=== PATIENT | female | born 1950 | race Caucasian/White ===

== ENCOUNTER 2019-01-15 06:01 | Inpatient (IN) | payer MEDICARE, OTHER ==
[2019-01-15] MEDS ORDERED: LACTATED RINGERS 1,000 ML IV.SOLN IV ONE ×2 (08:48)
[2019-01-15] MEDS ORDERED: GELATIN SPONGE,ABSORB/PORCINE (SIZE 100) 1 EACH SPONGE TP ONE (08:48)
[2019-01-15] MEDS ORDERED: SUGAMMADEX SODIUM 200 MG/2 ML VIAL IV ONE (08:48)
[2019-01-15] MEDS ORDERED: DEXAMETHASONE SODIUM PHOSPHATE 10 MG/ML VIAL ONE (08:48)
[2019-01-15] MEDS ORDERED: FUROSEMIDE 20 MG/2 ML VIAL ONE ×4 (08:48→14:00)
[2019-01-15] MEDS ORDERED: LIDOCAINE HCL 2% PF 100MG/5ML VIAL IJ ONE (08:48)
[2019-01-15] MEDS ORDERED: THROMBIN (BOVINE) 20,000 UNIT VIAL TP ONE (08:48)
[2019-01-15] MEDS ORDERED: LABETALOL HCL 20 MG/4 ML SYRINGE IV ONE ×2 (08:48→11:08)
[2019-01-15] MEDS ORDERED: NORMAL SALINE 1,000 ML IV.SOLN IV ONE (08:48)
[2019-01-15] MEDS ORDERED: PROPOFOL 200 MG/20 ML VIAL IV ONE (08:48)
[2019-01-15] MEDS ORDERED: fentaNYL CITRATE/PF 100 MCG/2 ML INJ. ONE ×3 (08:48→10:47)
[2019-01-15] MEDS ORDERED: ePHEDrine SULFATE 50 MG/1 ML IVP ONE (08:48)
[2019-01-15] MEDS ORDERED: MIDAZOLAM HCL 2 MG/2 ML VIAL ONE (08:48)
[2019-01-15] MEDS ORDERED: PHENYLEPHRINE HCL 10 MG/1 ML ONE (08:48)
[2019-01-15] MEDS ORDERED: SEVOFLURANE 250 ML LIQUID IH ONE (08:48)
[2019-01-15] MEDS ORDERED: ceFAZolin SODIUM 1 GM VIAL ONE (08:48)
[2019-01-15] MEDS ORDERED: ROCURONIUM BROMIDE 10 MG/ML 5ML VIAL ONE (08:48)
[2019-01-15] MEDS ORDERED: PROMETHAZINE HCL 25 MG/ML VIAL ONE ×2 (08:48→10:56)
[2019-01-15] MEDS ORDERED: BACITRACIN 50,000 UNIT VIAL IR ONE (08:48)
[2019-01-15] MEDS ORDERED: LEVALBUTEROL NEB 1.25 MG/3 ML VIAL.NEB NEB ONE (10:48)
--- NOTE | 2019-01-15 11:44 | Diagnostic Imaging Report ---
MARIN MOTLEY [facility] [id number] [facility] [address] [place], [place]. [address] Report Submission Date: January 15, 2019 11:36:29 AM CDT Patient Study Name: GILLIAN WILLIS Date: January 15, 2019 11:17:00 AM CDT Modality Type: DX Gender: F Description: CHEST 1VIEW : 52 Institution: [facility] Physician: MARIN MOTLEY EXAMINATION: CHEST 1VIEW HISTORY: POST OP LOW SATURATION (Hx) COMPARISON: None FINDINGS: A left subclavian approach cardiac device has an intact lead. Cervical spinal fusion hardware is present. Bilateral total shoulder arthroplasties are identified. There are diffuse bilateral fluffy airspace opacities, most pronounced in the perihilar regions. There is no pleural effusion or pneumothorax. The cardiomediastinal silhouette is normal. IMPRESSION: Diffuse bilateral airspace opacities, likely representing pulmonary edema. Electronically signed on January 15, 2019 11:36:29 AM CDT by: Joshua AMARO
[2019-01-15] MEDS ORDERED: diphenhydrAMINE HCL 25 MG TABLET PO PRN (15:38)
[2019-01-15] MEDS ORDERED: PANTOPRAZOLE SODIUM 40 MG TABLET.DR PO ONE (15:40)
[2019-01-15] MEDS ORDERED: ONDANSETRON HCL/PF 4 MG/ 2ML VIAL IVP PRN (15:44)
[2019-01-15] MEDS ORDERED: KETOROLAC TROMETHAMINE 15 MG/ML VIAL IV PRN (15:44)
[2019-01-15] MEDS ORDERED: oxyCODONE/ACETAMINOPHEN 5/325 TABLET PO PRN (15:44)
[2019-01-15] MEDS ORDERED: fentaNYL CITRATE/PF 100 MCG/2 ML INJ. IVP PRN (15:44)
[2019-01-15 15:48] VITALS: BMI 32.5
[2019-01-15] MEDS: GABAPENTIN 100 MG CAPSULE PO SCH (17:24)
--- NOTE | 2019-01-15 17:37 | History and Physical Report ---
History of Present Illnes - History of Present Illness Reason for Visit: s/p cervical fusion History of Present Illness: 69yo white female who has had several year history of neck pain. Has had some steroid injection, and has tried PT without improvement. Patient has failed conservative measure. It was felt that she would benefit from from anterior cervical disectomy and fusion of C7-T1. Patient denies that she has had any previous cervical surgery. Postoperatively patient developed some increasing SOB and dyspnea. Patient was placed on supplemental oxygen. She developed some pulmonary crackles and a chest x-ray was done that was consistent with CHF. Patient was given iv lasix with go od diuresis. Patient had improvement with her breathing at the time of admission to floor SAO2 was 94% on 4 liters. patient is not on oxygen therapy at home. 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 (2006 dysphagia and dysphsia) Gastrointestinal: Other (hx of C diff) Musculoskeletal: Chronic low back pain - Past Surgical History Past Surgical History: Appendectomy, Hysterectomy (1978), Total Knee Replacement (Right 2015), Other (Defibrilator/pacemaker placed 2011, back surgery for disk disease, carpal tunnel relase bilat, C ect 1970&1972, Rotaor cuff repair- Right 2012, Left 2013, reverse shoudler replacement 2013) - Past Family History Father Family History: CAD Brother 1 Family History: CAD Sister 1 Family History: Other (asthma) - Past Social History Smoke: No Occupation: disabled Alcohol: None Drugs: None Lives: With Family Domestic Violence: Negative - Health Maintenance Health Maintenance: Cholesterol, Influenza Vaccine Pneumonia Vaccine: Yes Resuscitation Status: Resusciation Status Resuscitation Status Full Code - Unable to Obtain History Unable to Obtain: No Review of Systems - Review of Systems Constitutional: negative: Fever, Chills, Sweats Eyes: other (glasses). negative: pain ENT: negative: Ear Pain, Ear Discharge, Nose Pain, Nose Discharge, Nose Congestion, Mouth Pain, Mouth Swelling, Throat Pain Respiratory: Shortness of Breath. negative: Cough, Dry, Hemoptysis, SOB with Excertion, Pleuritic Pain, Sputum, Wheezing Cardiovascular: negative: Chest Pain, Palpitations, Orthopnea, Edema, Light Headedness Gastrointestinal: negative: Nausea, Vomiting, Abdominal Pain, Diarrhea, Constipation, Melena, Hematochezia Genitourinary: negative: Dysuria, Frequency, Incontinence, Hematuria, Retention Musculoskeletal: Neck Pain. negative: Shoulder Pain, Arm Pain Skin: negative: Rash Neurological: negative: Weakness, Numbness - Medications/Allergies Allergies/Adverse Reactions: Allergies Allergy/AdvReac Type Severity Reaction Status Date / Time aspirin Allergy Verified 01/15/19 09:24 bee venom protein (honey bee) Allergy Verified 01/15/19 09:24 hydromorphone Allergy Verified 01/15/19 09:24 morphine Allergy Verified 01/15/19 09:24 Sulfa (Sulfonamide Allergy Verified 01/15/19 09:24 Antibiotics) Home Medications: Home Medications Carvedilol [Coreg] 6.25 mg PO BID 01/15/19 Furosemide 20 mg PO DAILY 01/15/19 Gabapentin 100 mg PO QID 01/15/19 Lisinopril 10 mg PO DAILY 01/15/19 Oxycodone HCl/Acetaminophen [Oxycodone-Acetaminophen 10-325] 1 tab PO Q6 PRN 01/15/19 Pravastatin Sodium 40 mg PO BID 01/15/19 Ranitidine HCl 300 mg PO DAILY PRN 01/15/19 diphenhydrAMINE HCL [Benadryl] 25 mg PO PRN PRN 01/15/19 Current Inpatient Medications: Current Inpatient Medications Carvedilol (Coreg) 6.25 mg PO BID [facility] Diphenhydramine HCl (Benadryl) 25 mg PO Q6H PRN PRN Reason: sleep/itching Docusate Sodium (Colace) 100 mg PO BID [facility] Stop: 01/17/19 09:01 Fentanyl Citrate (Sublimaze) 100 mcg IVP Q2H PRN PRN Reason: For Severe Pain 8-10 Stop: 01/16/19 15:43 Furosemide (Lasix) 20 mg IVP 714 [facility] Gabapentin (Neurontin) 100 mg PO QID [facility] Last Admin: 01/15/19 17:24 Dose: 100 mg Heparin Sodium (Porcine) (Heparin) 5,000 unit SQ Q12 [facility] Ketorolac Tromethamine (Toradol) 15 mg IV Q6H PRN PRN Reason: Mild Pain 1-4 Stop: 01/19/19 15:43 Last Admin: 01/15/19 16:23 Dose: 15 mg Lisinopril (Prinivil) 10 mg PO DAILY [facility] Ondansetron HCl (Zofran) 4 mg IVP Q6H PRN PRN Reason: Nausea / Vomiting Stop: 01/19/19 15:43 Oxycodone/Acetaminophen (Percocet 5-325) 2 each PO Q4 PRN PRN Reason: Moderate pain 5-7 Exam - Exam Vital Signs: Vital Signs (72 hours) 01/15/19 01/15/19 01/15/19 15:15 15:20 15:45 Temperature 96.5 F L 96.4 F L 96.7 F L Pulse Rate [ 115 H 112 H 112 H Left] Respiratory 17 22 19 Rate Blood Pressure 133/101 133/101 131/103 [Left Arm] O2 Sat by Pulse 93 90 L 95 Oximetry 01/15/19 01/15/19 01/15/19 16:15 16:51 17:15 Temperature 96.9 F L 96.8 F L 96.9 F L Pulse Rate [ 117 H 113 H 116 H Left] Respiratory 20 24 18 Rate Blood Pressure 117/92 133/91 123/95 [Left Arm] O2 Sat by Pulse 100 98 96 Oximetry General: Alert, Oriented to Person, Oriented to Place, Oriented to Time, Cooperative, Moderate distress HEENT: Atraumatic, PERRLA, EOMI, Mouth Mucous membr. moist/[employer], Nose Mucous membr. moist/[employer] Neck: Other (dressing to the anterior neck is clean and dry. No neck swelling noted.) Carotids: WNL Lungs: Clear to auscultation, Normal air movement, Speaks full Sentences, Rales (few faint basilar rales) Cardiovascular: Regular rate, Normal S1, Normal S2, No murmurs Murmur: No: Rub Abdomen: Normal bowel sounds, Soft, No tenderness, No hepatospenomegaly, No masses Integumentary: Normal, [employer], Warm, Dry Extremities: No clubbing, No cyanosis, No edema, Normal pulses, No tenderness/swelling Neurological: Normal gait, Normal speech, Strength Equal Bilat, Normal tone, Sensation intact, Cranial nerves 3-12 NL, Reflexes 2+ Psych/Mental Status: Mental status NL, Mood NL, Appropriate Affect, Intact Judgment - Laboratory Results Laboratory Results: Laboratory Results 01/15/19 11:25 Hgb 13.5 Hct 39.7 Assessment/Plan - Assessment/Plan (1) History of orthopedic surgery Status: Acute (2) CAD (coronary artery disease) Status: Chronic Qualifiers: Coronary Disease-Associated Artery/Lesion type: [place] artery [place] vs. transplanted heart: [place] heart Associated angina: without angina Qualified Code(s): I25.10 - Atherosclerotic heart disease of [place] coronary artery without angina pectoris Assessment: continue home meds (3) Obstructive sleep apnea Status: Chronic Assessment: Patient refuses CPAP. Does not wear oxygen at home (4) HTN (hypertension) Status: Chronic Assessment: continue home meds (5) Status post cerebrovascular accident Status: Chronic Assessment: stable, no TIA or CVA symptoms at this time VTE Assessment - RISK FACTOR SCORE VTE RISK FACTOR SCORES: AGE OVER 60 YEARS, ANTICIPATED BED CONFINEMENT OR IMMOBILIZATION > 24 HOURS - RISK VTE MODERATE RISK: SCORE OF 2 (RISK PROXIMAL DVT 2-4%) PROPHYAXIS NEEDED
[2019-01-15] MEDS ORDERED: DOCUSATE SODIUM 100 MG CAPSULE PO SCH (21:00)
[2019-01-15] MEDS ORDERED: CARVEDILOL 6.25 MG TABLET PO SCH (21:00)
[2019-01-15] MEDS ORDERED: HEPARIN SODIUM 5000 UNIT/1 ML SQ SCH (21:00)
[2019-01-15] MEDS ORDERED: 0.9 % SODIUM CHLORIDE 1,000 ML IV ONE (21:07)
[2019-01-15] MEDS ORDERED: 0.9 % SODIUM CHLORIDE 250 ML IV SCH ×2 (21:45)
[2019-01-15 22:10] LABS: BASOPHILS % 0.4 % (0.0-1.5)
[2019-01-15] MEDS ORDERED: ASPIRIN 81 MG CHEW TAB ONE (22:51)
--- NOTE | 2019-01-15 23:11 | Inpatient Progress Note ---
Subjective - Required Recertification Statement I anticipate X number of days because-include discharge plan: 1 day - Review of Systems Events since last encounter: Patient seemed to be doing well postoperatively. Had been weaned down from 4 liters oxygen to 1 liter per nasal canula. At about 2030 this evening she started to drop her blood pressure to 60 systolic. Patient was given bolus of 500cc NS with improvement of sytolic BP to mid 80s. Then is dropped again to the 60s. Patient was given another 250cc bolus with return of BP to the 90s. patient denies that she has had any chest pain. EKG done did show some slight ST elevation , 1mm in V4 V5. Troponin was done and was found to be elevated at 1.3. Residential Installer at the [facility] contacted and agreed to accept patient. Objective - Exam Vitals and I&O: Vital Signs Temp 97.3 F L 01/15/19 20:38 Pulse 110 H 01/15/19 20:38 Resp 15 01/15/19 20:38 BP 80/49 01/15/19 20:38 Pulse Ox 100 01/15/19 20:38 Intake & Output 01/14/19 01/15/19 01/15/19 23:59 11:59 23:59 Intake Total 100 Output Total 450 Balance -350 Weight 73.028 kg Intake: IV 0 Left Hand 0 Oral 100 Output: Urine 450 Other: Voiding Method Indwelling Catheter General: Alert, Oriented to Person, Oriented to Place, Oriented to Time, Cooperative Neck: No JVD, No thyromegaly, Other (no swelling noted) Lungs: Clear to auscultation, Normal air movement, Speaks full Sentences Cardiovascular: Regular rate, Normal S1, Normal S2, No murmurs Abdomen: Normal bowel sounds, Soft, No tenderness, No hepatospenomegaly, No masses Extremities: No clubbing, No cyanosis, No edema, Normal pulses, No tenderness/swelling - Results Results: Laboratory Results WBC 11.70 K/ul (4.00-12.00) 01/15/19 21:45 RBC 4.13 M/ul (3.90-5.20) 01/15/19 21:45 Hgb 12.0 g/dL (11.5-16.0) 01/15/19 21:45 Hct 35.5 % (34.5-46.5) 01/15/19 21:45 MCV 86.0 fl (80.0-100.0) 01/15/19 21:45 MCH 29.1 pg (28.0-34.0) 01/15/19 21:45 MCHC 33.9 g/dL (30.0-36.0) 01/15/19 21:45 RDW 13.4 % (11.3-14.3) 01/15/19 21:45 Plt Count 241 K/mm3 (130-400) 01/15/19 21:45 Neut % (Auto) 85.2 % (39.0-79.0) H 01/15/19 21:45 Lymph % (Auto) 8.2 % (16.0-50.0) L 01/15/19 21:45 [place] % (Auto) 5.4 % (0.0-11.0) 01/15/19 21:45 Eos % (Auto) 0.8 % (0.0-6.8) 01/15/19 21:45 Baso % (Auto) 0.4 % (0.0-1.5) 01/15/19 21:45 Neut # (Auto) 10.0 # k/uL (1.4-7.7) H 01/15/19 21:45 Lymph # (Auto) 1.0 # k/uL (0.6-4.0) 01/15/19 21:45 [place] # (Auto) 0.6 # k/uL (0.0-0.9) 01/15/19 21:45 Eos # (Auto) 0.1 # k/uL (0.0-0.6) 01/15/19 21:45 Baso # (Auto) 0.1 # k/uL (0.0-0.5) 01/15/19 21:45 Sodium 139 mmol/L (137-145) 01/15/19 21:45 Potassium 5.7 mmol/L (3.5-5.1) H 01/15/19 21:45 Chloride 104 mmol/L (98-107) 01/15/19 21:45 Carbon Dioxide 25 mmol/L (22-30) 01/15/19 21:45 BUN 32 mg/dL (7-17) H 01/15/19 21:45 Creatinine 1.76 mg/dL (0.52-1.04) H 01/15/19 21:45 Estimated Creat Clear 41 01/15/19 21:45 Est GFR ( Amer) 37 (60-) L 01/15/19 21:45 Est GFR (Non-Af Amer) 31 (60-) L 01/15/19 21:45 Glucose 145 mg/dL (74-106) H 01/15/19 21:45 Calcium 8.9 mg/dL (8.4-10.2) 01/15/19 21:45 Total Bilirubin 0.3 mg/dL (0.2-1.3) 01/15/19 21:45 AST 50 U/L (15-46) H 01/15/19 21:45 ALT 34 U/L (0-35) 01/15/19 21:45 Alkaline Phosphatase 69 U/L (38-126) 01/15/19 21:45 Troponin I 1.320 ng/mL (0.012-0.034) H* 01/15/19 21:45 Total Protein 6.3 g/dL (6.3-8.2) 01/15/19 21:45 Albumin 3.5 g/dL (3.5-5.0) 01/15/19 21:45 Assessment/Plan - Assessment/Plan (1) History of orthopedic surgery Status: Acute (2) CAD (coronary artery disease) Status: Chronic Qualifiers: Coronary Disease-Associated Artery/Lesion type: [place] artery [place] vs. transplanted heart: [place] heart Associated angina: without angina Qualified Code(s): I25.10 - Atherosclerotic heart disease of [place] coronary artery without angina pectoris Assessment: Patient has been having some hypertension with elevated troponin levels. I will contact director security risk management at [facility] further direction. I feel that would be appropriate for her to be transferred to the [place] [facility] for further evaluation. (3) Obstructive sleep apnea Status: Chronic (4) HTN (hypertension) Status: Chronic (5) Status post cerebrovascular accident Status: Chronic
--- NOTE | 2019-01-15 23:13 | Discharge Summary ---
Discharge Summary - Discharge [place] Admission Date: 01/15/19 (Acute Care) Discharge Date: 01/15/19 ([facility]) History of Present Illness: 69yo white female who has had several year history of neck pain. Has had some steroid injection, and has tried PT without improvement. Patient has failed conservative measure. It was felt that she would benefit from from anterior cervical disectomy and fusion of C7-T1. Patient denies that she has had any previous cervical surgery. Postoperatively patient developed some increasing SOB and dyspnea. Patient was placed on supplemental oxygen. She developed some pulmonary crackles and a chest x-ray was done that was consistent with CHF. Patient was given iv lasix with good diuresis. Patient had improvement with her breathing at the time of admission to floor SAO2 was 94% on 4 liters. patient is not on oxygen therapy at home. Condition at Discharge: Guarded Home Medications: Ambulatory Orders Medication Instructions Recorded Carvedilol [Coreg] 6.25 mg PO BID 01/15/19 Furosemide 20 mg PO DAILY 01/15/19 Gabapentin 100 mg PO QID 01/15/19 Lisinopril 10 mg PO DAILY 01/15/19 Oxycodone HCl/Acetaminophen 1 tab PO Q6 PRN 01/15/19 [Oxycodone-Acetaminophen 10-325] Pravastatin Sodium 40 mg PO BID 01/15/19 Ranitidine HCl 300 mg PO DAILY PRN 01/15/19 diphenhydrAMINE HCL [Benadryl] 25 mg PO PRN PRN 01/15/19 Consultations this Visit: None Procedures this Visit: Other (Anterior C7-T1 fusion) Allergies/Adverse Reactions: Allergies Allergy/AdvReac Type Severity Reaction Status Date / Time aspirin Allergy Verified 01/15/19 09:24 bee venom protein (honey bee) Allergy Verified 01/15/19 09:24 hydromorphone Allergy Verified 01/15/19 09:24 morphine Allergy Verified 01/15/19 09:24 Sulfa (Sulfonamide Allergy Verified 01/15/19 09:24 Antibiotics) Patient Problems: Current Active Problems Problem Status Onset History of orthopedic surgery Acute CAD (coronary artery disease) Chronic HTN (hypertension) Chronic Obstructive sleep apnea Chronic Status post cerebrovascular accident Chronic Discharge Summary: Patient did develop some CHF postoperatively. She was given IV lasix with good diuresis. Patient seemed to be doing well postoperatively. Had been weaned down from 4 liters oxygen to 1 liter per nasal canula. At about 2030 this evening she started to drop her blood pressure to 60 systolic. Patient was given bolus of 500cc NS with improvement of sytolic BP to mid 80s. Then is dropped again to the 60s. Patient was given another 250cc bolus with return of BP to the 90s. patient denies that she has had any chest pain. EKG done did show some slight ST elevation , 1mm in V4 V5. Troponin was done and was found to be elevated at 1.3. Patient was given 364mg of aspirin given 5000 units heparin. it was decided to wait on any further anticoagulation until she is seen at the [facility]. [facility] contacted and agreed to accept patient. - Final Diagnosis (1) History of orthopedic surgery Problems: s/p anterior cervical fusion. (2) CAD (coronary artery disease) Problems: Elevated troponin, I suspect that she has had an acute AL. (3) Obstructive sleep apnea Problems: Patient refused to use CPAP (4) HTN (hypertension) Problems: stable (5) Status post cerebrovascular accident Problems: stable
[2019-01-16 00:17] VITALS: BP 76/43
[2019-01-16] MEDS: GABAPENTIN 100 MG CAPSULE PO SCH (00:33)
[2019-01-16] MEDS ORDERED: FUROSEMIDE 20 MG/2 ML VIAL IVP SCH (07:00)
[2019-01-16] MEDS ORDERED: LISINOPRIL 10 MG TABLET PO SCH (09:00)
--- NOTE | 2019-01-18 06:55 | Operative Note ---
PREOPERATIVE DIAGNOSIS: 1. Degenerative disc disease with spondylolisthesis, C7-T1. 2. Severe facet arthritis, C7-T1. POSTOPERATIVE DIAGNOSIS: 1. Degenerative disc disease with spondylolisthesis, C7-T1. 2. Severe facet arthritis, C7-T1. PROCEDURES PERFORMED: 1. Radical anterior cervical discectomy, C7-T1. 2. Partial vertebrectomy of the posterior inferior aspect of the C7 vertebral body for decompression of central and bilateral foraminal stenosis. 3. Partial vertebrectomy of the posterior superior aspect of the T1 vertebral body for decompression of central and bilateral foraminal stenosis. 4. Insertion of prosthetic interbody fusion cage, C7-T1. 5. Anterior cervical fusion, C7-T1 using osteoconductive bone graft material. 6. Placement of anterior plate and screws, C7-T1. SURGEON: Jamel Colon Jr., M.D. INSTRUCTOR PILOT: TOPHER Rodriguez BC ANESTHESIA: General. COMPLICATIONS: None. CONDITION FOLLOWING THE PROCEDURE: Good. OPERATIVE FINDINGS: This patient had sudden, severe neck pain and documented by CT scan, myelogram and x-rays to have spondylolisthesis grade 1 at C7-T1 precipitated by severe arthritis which was also painful, attributable to the facet joints at C7-T1. This being the case, and having failed prolonged conservative management, the patient was counseled regarding options and has elected to proceed with anterior cervical discectomy and fusion. Because of the severe facet arthritis, arthroplasty could not be considered. Anterior plate and screws of the appropriate size along with a 6-mm interbody cage was placed and the space anterior to the cage was filled with osteoconductive bone graft material as well as the cage itself. DESCRIPTION OF PROCEDURE: The patient was taken to the operating room and anesthesia induced. In the supine position, the neck was thoroughly scrubbed, sterilely prepped and draped. A radiographic marker was made indicating the extended center line of the affected disc. In this location, and just to the left of midline, a transverse incision was made parallel to the skin lines, being 1-1/2 cm in length. Blunt dissection with a Metzenbaum scissor was carried out down the left side of the trachea and digital dissection was also performed in order to assure that the carotid triangle remained to the left side of the plane of dissection and the esophagus and trachea to the right side of the plane of dissection. Digital dissection continued down until the longus colli muscles were palpated on the left lateral side of the anterior spinal column. An [place] retractor was then inserted, retracting the trachea and esophagus to the right side and the prevertebral fascia was opened with blunt dissection using Kittner sponges to reveal an anterior annulus. A marker needle was placed and x-rays were taken to confirm the C7-T1 level for surgical care. Electrocautery was then used to elevate the longus colli muscles from the edge of the vertebral body and Hand Spring Repairer Helper self-retaining tined retractors were then placed on the left and right side at the disc level and beneath the longus colli muscles which had been elevated with electrocautery. This being accomplished, the self-retaining retractor was inserted and widened sufficiently. A #15 blade scalpel was then used to divide the annulus completely. Pituitary rongeur then removed the annulus and continued with a radical discectomy. York pins were then carefully placed into the central portion of the vertebral body above and below the disc space and the York retractor placed to provide distraction of the intervertebral disc space. Curettage of the endplates was then carried out. A 2-mm Kerrison rongeur was then used to remove the anterior osteophytes over the superior vertebral body. A smaller curette was then used to penetrate the annulus posteriorly and expose the dura sufficiently to allow entrance of a 1-mm Kerrison rongeur. A combination of 1-mm and 2-mm Kerrison rongeurs were then used to completely remove the posterior longitudinal ligament and thus expose the dura posteriorly. Resection of the osteophytes emanating posteriorly continued until there was complete relief of the central and bilateral foraminal compression. A sizer was then used until the correct height for a PEEK implant was chosen. The appropriate PEEK interbody implant was then chosen and packed with a combination of autologous bone graft and osteoconductive bone graft material (nanOss). The PEEK implant was then driven to the desired depth as determined radiographically. A titanium plate of the appropriate size was then placed anteriorly. This was performed after removal of the York pins which had been previously placed for distraction of the intervertebral disc space. The York pin holes in the vertebral body anteriorly were filled with bone wax. With the York pins removed, the appropriately-sized plate was chosen and placed anteriorly. Sequentially, the four holes were drilled and accepted fixation screws which were tightened down to secure the plate to the anterior vertebral bodies. Between the fenestration and the plate, the remainder of the anterior space anterior to the PEEK cage was completely packed with osteoconductive bone graft material. The retractor blades were then removed and the wound was inspected for hemostasis. Subcutaneous tissue was closed with 3-0 Vicryl. A 4-0 Vicryl running subcuticular suture approximated the dermis. The epithelium was then approximated using Dermabond. A Band-Aid was applied and the patient was taken to the recovery room where it was assured that motor and sensory examination was normal. JAMEL COLON JR., M.D. SHERLYN/rojelio (Please copy [facility] provider when applicable) Job #[id number] SONDAR
== END 2019-01-15 23:45 | disposition short-term general hospital (02) | DRG 471 ==
LOC: OPSURG 06:01 → SOUTH 14:45
PROVIDERS: ADMIT Family Medicine; ATTEND Family Medicine
PROC: XRG New Technology, Joints, Fusion (ICD-10-PCS; principal; 2019-01-15)
DX: M43.13 Spondylolisthesis, cervicothoracic region (principal); I21.9 Acute myocardial infarction, unspecified; G89.29 Other chronic pain; E78.00 Pure hypercholesterolemia, unspecified; I11.0 Hypertensive heart disease with heart failure; I50.9 Heart failure, unspecified; I25.10 Atherosclerotic heart disease of native coronary artery without angina pectoris; I25.2 Old myocardial infarction; M54.5 Low back pain; G47.33 Obstructive sleep apnea (adult) (pediatric); R03.1 Nonspecific low blood-pressure reading; M25.562 Pain in left knee; M25.561 Pain in right knee; M46.83 Other specified inflammatory spondylopathies, cervicothoracic region; Z86.73 Personal history of transient ischemic attack (TIA), and cerebral infarction without residual deficits; Z86.74 Personal history of sudden cardiac arrest; Z95.810 Presence of automatic (implantable) cardiac defibrillator; Z87.01 Personal history of pneumonia (recurrent); Z96.651 Presence of right artificial knee joint; Z90.49 Acquired absence of other specified parts of digestive tract; Z90.710 Acquired absence of both cervix and uterus; Z86.018 Personal history of other benign neoplasm; Z88.2 Allergy status to sulfonamides; Z91.030 Bee allergy status; Z79.899 Other long term (current) drug therapy; Z86.19 Personal history of other infectious and parasitic diseases; Z96.619 Presence of unspecified artificial shoulder joint; Z88.5 Allergy status to narcotic agent; Z88.8 Allergy status to other drugs, medicaments and biological substances; Z53.20 Procedure and treatment not carried out because of patient's decision for unspecified reasons
CPT/HCPCS: 20930; 20936; 22551; 22853; 36415; 71045; 80053; 84484; 85014; 85018; 85025; 99221; J0690; J1644; J1940; J2001; J2250; J2370; J2550; J2704; J3010; J7614; J3490; J7030; J7120